=== PATIENT | female | born 1935 | race Caucasian/White ===

== ENCOUNTER → 2020-10-29 | Day surgery (SDC) | payer BC, MEDICARE ==
[2020-10-28 09:54] LABS: BASOPHILS % 0.5 % (0.0-1.0); HEMATOCRIT 36.1 % (34.2-44.1); HEMOGLOBIN 11.5 g/dL (12.0-16.0); LYMPHOCYTES # (AUTO) 0.7 (1.0-3.2); LYMPHOCYTES % 17.5 % (18.0-39.1); MEAN CORPUSCULAR HEMOGLOBIN 31.3 pg (28-32); MEAN CORPUSCULAR HGB CONC 31.9 g/dL (31-35); MEAN CORPUSCULAR VOLUME 98.4 fL (81-99); MONOCYTES # (AUTO) 0.4 (0.2-0.8); MONOCYTES % 9.5 % (4.4-11.3); NEUTROPHILS # (AUTO) 2.8 (2.1-6.9); PLATELET COUNT 113 x10e3/uL (140-360); RED BLOOD COUNT 3.67 x10e6/uL (3.6-5.1); RED CELL DISTRIBUTION WIDTH 13.8 % (11.7-14.4)
[2020-10-28 10:43] LABS: ANION GAP 17.8 mmol/L (8-16); CALCIUM 9.4 mg/dL (8.4-10.2); CREATININE, SERUM 0.91 mg/dL (0.57-1.11); POTASSIUM 3.8 mmol/L (3.5-5.1)
[~2020-10-29] MED LIST: BUMETANIDE1 MG PO; BUPIVACAINE HCL 0.5% 10ML MPF VIAL INJ ONE; CELEBREX; CELEBREX100 MG PO; CRESTOR10 MG PO; DICYCLOMINE HCL10 MG PO; DIOVAN; ELIQUIS5 MG PO; FOLIC ACID0.8 M1 PO; GABAPENTIN100 MG PO; HYDROCODON-ACE1 EA12 PO; LEFLUNOMIDE10 MG PO; LEVOCETIRIZINE D5 MG PO; LEVOTHYROXINE75 MCG PO; METFORMIN; METOPROLOL SUCC25 MG PO; MUPIROCIN 2% OINT 22 GM TUBE ONE; MYRBETRIQ25 MG PO; PANTOPRAZOLE SO40 MG PO; PREDNISONE5 MG PO; SODIUM CHLORIDE 0.9% 50ML 50 ML ONE; SYNTHROID; TRULICITY0.75 MG/0. SC; Z.0.CYMBALTA60 MG PO; Z.0.LIPITOR20 MG PO; Z.0.PLAQUENIL200 MG PO
[2020-10-29 08:20] VITALS: BP 125/78
== END | disposition home or self-care (01) ==
LOC: OR 05:56
PROVIDERS: ATTEND Plastic Surgery
DX: G56.02 Carpal tunnel syndrome, left upper limb (principal); M65.832 Other synovitis and tenosynovitis, left forearm; I10 Essential (primary) hypertension; E11.9 Type 2 diabetes mellitus without complications; I48.91 Unspecified atrial fibrillation; J44.9 Chronic obstructive pulmonary disease, unspecified; I38 Endocarditis, valve unspecified; M06.9 Rheumatoid arthritis, unspecified; M19.90 Unspecified osteoarthritis, unspecified site; Z01.810 Encounter for preprocedural cardiovascular examination; Z01.812 Encounter for preprocedural laboratory examination; Z01.818 Encounter for other preprocedural examination; Z79.84 Long term (current) use of oral hypoglycemic drugs
CPT/HCPCS: 25115; 36415 ×2; 71046; 80048; 82948; 85025; 93005; J0690

== ENCOUNTER → 2020-11-26 | Day surgery (SDC) | payer BC, MEDICARE ==
[~2020-11-26] MED LIST changes: +BUPIVACAINE HCL 0.25% 10ML MPF VIAL INJ ONE; -BUPIVACAINE HCL 0.5% 10ML MPF VIAL INJ ONE; +ONDANSETRON HCL INJ 2MG/ML 2ML 2 MG/ML VIAL ONE; -SODIUM CHLORIDE 0.9% 50ML 50 ML ONE
[2020-11-26 08:45] VITALS: BP 138/86
== END | disposition home or self-care (01) ==
LOC: OR 08:00
PROVIDERS: ATTEND Plastic Surgery
DX: G56.01 Carpal tunnel syndrome, right upper limb (principal); M65.831 Other synovitis and tenosynovitis, right forearm; I48.91 Unspecified atrial fibrillation; I10 Essential (primary) hypertension; E11.9 Type 2 diabetes mellitus without complications; Z01.812 Encounter for preprocedural laboratory examination; Z20.822 Contact with and (suspected) exposure to COVID-19; Z86.711 Personal history of pulmonary embolism
CPT/HCPCS: 25115; 36415; 82948; J0690; J2405; U0002